=== PATIENT | male | born 1950 | race Caucasian/White ===

== ENCOUNTER 2018-09-08 05:27 | Emergency (ER) | payer MEDICARE, OTHER ==
[2018-09-08] MEDS: LORAZEPAM 1 MG TAB PO (06:45)
[2018-09-08 07:20] LABS: ADD MAN DIFF? NO
[2018-09-08 07:24] LABS: WHITE BLOOD COUNT 8.8 10^3/ul (4.8-10.8)
[2018-09-08 07:24] LABS: BASOPHIL # 0.1 10^3/ul (0.0-0.1); BASOPHILS % 0.9 % (0.0-2.0); EOSINOPHILS % 0.2 % (0.0-7.0); HEMOGLOBIN 13.9 g/dl (14.0-18.0); LYMPHOCYTES # 1.1 10^3/ul (0.8-2.9); LYMPHOCYTES % 12.5 % (15.0-51.0); MEAN CORPUSCULAR HEMOGLOBIN 28.4 pg (29.0-33.0); MEAN CORPUSCULAR HGB CONC 33.9 g/dl (32.0-37.0); MEAN CORPUSCULAR VOLUME 83.7 fl (82.0-101.0); MEAN PLATELET VOLUME 10.4 fl (7.4-10.4); MONOCYTE # 0.6 10^3/ul (0.3-0.9); MONOCYTES % 6.6 % (0.0-11.0); NEUTROPHILS % 79.3 % (39.0-77.0); PLATELET COUNT 274 10^3/UL (140-415); RED CELL DISTRIBUTION WIDTH 12.9 % (11.5-14.5)
[2018-09-08 07:44] LABS: ACETAMINOPHEN < 10.0 ug/ml (10.0-30.0); ALANINE AMINOTRANSFERASE 23 IU/L (13-69); ALBUMIN 4.7 g/dl (3.3-4.9); ALBUMIN/GLOBULIN RATIO 1.67; ALKALINE PHOSPHATASE 77 IU/L (42-121); ANION GAP 15 (5-13); ASPARTATE AMINO TRANSFERASE 42 IU/L (15-46); BILIRUBIN,INDIRECT 0.9 mg/dl (0-1.1); BILIRUBIN,TOTAL 0.9 mg/dl (0.2-1.3); BLOOD UREA NITROGEN 28 mg/dl (7-20); CALCIUM 9.9 mg/dl (8.4-10.2); CARBON DIOXIDE 21 mmol/L (21-31); CHLORIDE 108 mmol/L (97-110); CREATININE 0.99 mg/dl (0.61-1.24); ETHANOL < 10.0 mg/dl (0-0); Estimated GFR > 60 mL/min (>60); GLUCOSE 100 mg/dl (70-220); SALICYLATE < 1.0 mg/dl (5.0-30.0); SODIUM 144 mmol/L (135-144); TOTAL PROTEIN 7.5 g/dl (6.1-8.1)
[2018-09-08] MEDS: QUETIAPINE 25 MG TAB PO (08:37)
[2018-09-08 15:39] LABS: BARBITURATES Negative (NEGATIVE); BENZODIAZEPINES Negative (NEGATIVE); CANNABINOIDS Positive (NEGATIVE); COCAINE Negative (NEGATIVE); OPIATES Negative (NEGATIVE)
[2018-09-08 16:12] LABS: UR CLARITY CLEAR (CLEAR); UR COLOR AMBER (YELLOW); UR TOTAL PROTEIN (Dip) 1+ mg/dl (NEGATIVE); URINE PH (Dip) 5 (5.0-9.0); URINE SPECIFIC GRAVITY (Dip) 1.035 (1.003-1.030)
[2018-09-08 16:13] LABS: ADD UMIC YES; UR ASCORBIC ACID NEGATIVE (NEGATIVE); UR BILIRUBIN (Dip) NEGATIVE (NEGATIVE); UR BLOOD (Dip) NEGATIVE (NEGATIVE); UR GLUCOSE (Dip) NEGATIVE (NEGATIVE); UR KETONES (Dip) 1+ mg/dL (NEGATIVE); UR LEUKOCYTE ESTERASE (Dip) NEGATIVE Leu/ul (NEGATIVE); UR NITRITE (Dip) NEGATIVE (NEGATIVE); UR UROBILINOGEN (Dip) 0.2 E.U./dL mg/dL (NEGATIVE)
[2018-09-08 16:20] LABS: UR MUCUS MANY /HPF (NONE SEEN); UR RBC 2 /HPF (0-5); UR WBC 1 /HPF (0-5)
[2018-09-08 16:47] LABS: AMPHETAMINE/METHAMPHETAMINE POSITIVE (NEGATIVE)
[2018-09-08] MEDS: BUSPIRONE 5 MG TAB PO (21:07)
== END 2018-09-09 05:00 | disposition home or self-care (01) ==
LOC: E/R 05:27
DX: F99 Mental disorder, not otherwise specified (principal)
CPT/HCPCS: 80053; 80307; 81001; 85025; 99285